=== PATIENT | male | born 1975 | race Caucasian/White ===

== ENCOUNTER 2024-06-07 15:27 | Emergency (ER) | payer BC ==
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
[2024-06-07 16:12] LABS: Basophils % (A) 1 %; Eosinophils # (A) 0.2 k/uL (0-0.7); Eosinophils % (A) 3 %; HCT 43.2 % (39.0-53.0); HGB 14.6 gm/dL (13.0-17.5); Lymphocytes # (A) 2.5 k/uL (1.0-4.8); Lymphocytes % (A) 42 %; MCH 32.9 pg (25.0-35.0); MCHC 33.7 g/dL (31.0-37.0); MCV 97.5 fL (80.0-100.0); Mean Platelet Volume 9.5; Monocytes # (A) 0.5 k/uL (0-1.0); Monocytes % (A) 9 %; Neutrophils # (A) 2.5 k/uL (1.3-7.7); Neutrophils % (A) 42 %; Platelet Count 190 k/uL (150-450); RBC 4.43 m/uL (4.30-5.90); RDW 12.4 % (11.5-15.5); WBC 5.9 k/uL (3.8-10.6)
[2024-06-07 16:22] LABS: Prothrombin Time 10.8 sec (10.0-12.5)
[2024-06-07 16:23] LABS: ALT 15 U/L (4-49); African American GFR (CKD) >90 (>60 ml/min/1.73 sqM); Albumin 4.2 g/dL (3.5-5.0); Anion Gap 5 mmol/L; Blood Urea Nitrogen 25 mg/dL (9-20); Calcium 9.3 mg/dL (8.4-10.2); Carbon Dioxide 27 mmol/L (22-30); Chloride 106 mmol/L (98-107); Glucose 106 mg/dL (74-99); Non-African American GFR(CKD) >90 (>60 ml/min/1.73 sqM); Sodium 138 mmol/L (137-145); Total Bilirubin 0.7 mg/dL (0.2-1.3); Total Protein 6.6 g/dL (6.3-8.2)
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
[2024-06-07 16:31] LABS: Potassium 4.2 mmol/L (3.5-5.1)
[2024-06-07 16:32] LABS: AST 31 U/L (17-59); Alkaline Phosphatase 88 U/L (38-126)
[2024-06-07 16:35] LABS: Partial Thromboplastin Time 19.5 sec (22.0-30.0)
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
[2024-06-07] MEDS: ACET/COD 300 MG/30 MG STARTER PACK 6 TAB BTL PO STA (18:03)
[2024-06-07] MEDS: CYCLOBENZAPRINE 10MG STARTER 3 TAB BTL PO STA (18:03)
[2024-06-07] MEDS: TOPICAL SKIN ADHESIVE 1 EACH AMP TOPICAL ONE (18:04)
[2024-06-07 18:09] VITALS: BP 127/90; PULSE 62; RESP 12; TEMP 98.6
== END 2024-06-07 18:10 | disposition home or self-care (01) ==
LOC: EC 15:27
DX: S06.0X0A Concussion without loss of consciousness, initial encounter (principal); S01.21XA Laceration without foreign body of nose, initial encounter; R40.2410 Glasgow coma scale score 13-15, unspecified time; V89.2XXA Person injured in unspecified motor-vehicle accident, traffic, initial encounter; Y92.410 Unspecified street and highway as the place of occurrence of the external cause
CPT/HCPCS: 99285 ×2; 12011 ×2; 36415; 93005; 86900; 86901; 80053; 85025; 85610; 85730; 86850; 70160; 72170; 71045; 72125; 70450; L0120